=== PATIENT | male | born 1985 | race Caucasian/White ===

== ENCOUNTER 2019-10-13 22:19 | Emergency (ER) | payer OTHER ==
[~2019-10-13] VITALS: Ht 185.4 cm; Wt 95.0 kg
[2019-10-13 22:23] VITALS: BP 151/92
[2019-10-13] MEDS ORDERED: LIDOCAINE 1%-EPI 1:100K, 20ML ONE (22:53)
[2019-10-14] MEDS ORDERED: DIPH,PERTUSS(ACELL),TET VAC/PF 0.5 ML IM-VACC ONE (00:17)
[2019-10-14] MEDS ORDERED: DIPH,PERTUSS(ACELL),TET VAC/PF NC IM-VACC ONE (00:30)
== END 2019-10-14 00:57 | disposition home or self-care (01) ==
LOC: ED 10-14 00:30
DX: S61.412A Laceration without foreign body of left hand, initial encounter (principal); X58.XXXA Exposure to other specified factors, initial encounter; Y93.89 Activity, other specified; Y92.009 Unspecified place in unspecified non-institutional (private) residence as the place of occurrence of the external cause; Y99.8 Other external cause status
CPT/HCPCS: 12042; 90471; 90715; 99284